=== PATIENT | female | born 1985 | race Caucasian/White ===

== ENCOUNTER 2022-09-07 14:09 | Observation (INO) | payer MEDICAID ==
[2022-09-07 14:45] VITALS: BP 110/57; PULSE 99
[2022-09-07 14:54] LABS: Appearance Cloudy (Clear); Bacteria Moderate /HPF (None Seen); Bilirubin Negative (Negative); Blood Negative (Negative); Epithelial Cells Moderate /HPF (None Seen); Glucose, Urine >=1000 mg/dL (Negative); Hyaline Casts NONE SEEN /LPF (0-2); Ketones 15 (Negative); Leukocyte Esterase Moderate (Negative); Nitrite Negative (Negative); Protein,Urine Dip Trace (Negative); Specific Gravity >=1.030 (1.005-1.030); WBC >100 /HPF (0-5)
[2022-09-07 15:06] LABS: ADD URINE CULTURE? YES (NO)
[2022-09-07 15:08] LABS: Amphetamine,Urine NEGATIVE (NEGATIVE); Barbiturate,Urine NEGATIVE (NEGATIVE); Benzodiazepine,Urine NEGATIVE (NEGATIVE); Cocaine,Urine NEGATIVE (NEGATIVE); Methadone,Urine NEGATIVE (NEGATIVE); Opiate,Urine NEGATIVE (NEGATIVE); PCP,Urine NEGATIVE (NEGATIVE); THC,Urine NEGATIVE (NEGATIVE)
[2022-09-07] MEDS ORDERED: Lactated Ringers 500 ML IV ONE (15:24)
[2022-09-07] MEDS ORDERED: Invanz *** 1 G in Sodium Chloride 100ML MINI-BAG PLUS 100 ML IV SCH (15:30)
[2022-09-07] MEDS ORDERED: Invanz *** 1 G in Sodium Chloride 100ML MINI-BAG PLUS 100 ML IV ONE (15:45)
[2022-09-07 15:49] LABS: Hematocrit 30.7 % (35-47); Hemoglobin 9.9 g/dL (12.0-16.0); Mean Cell Volume 94.8 fL (78-100); Mean Corpuscular Hemoglobin 30.6 pg (26-32); Mean Corpuscular Hgb Concent. 32.2 g/dL (32-36); Mean Platelet Volume 11.5 fL (7.5-11.0); Platelet Count 128 x10^3/uL (150-450); Red Blood Count 3.24 x10^6/uL (4.1-5.4); Red Cell Distribution Width 13.1 % (11.5-14.0)
[2022-09-07 16:23] LABS: ALKALINE PHOSPHATASE 75 U/L (38-126); BLOOD UREA NITROGEN 6 mg/dL (7-17); CHLORIDE 106 mmol/L (98-107); Carbon Dioxide 23 mmol/L (22-30); SGPT/ALT 13 U/L (0-35); SODIUM 137 mmol/L (137-145)
[2022-09-07 16:39] LABS: ALBUMIN 3.1 g/dL (3.5-5.0); ANION GAP 11.6 MEQ/L (5-15); Calcium 7.9 mg/dL (8.4-10.2); EST GLOMERULAR FILTRATION RATE > 60.0 ML/MIN; Glucose 103 mg/dL (74-106); Potassium 3.7 mmol/L (3.5-5.1); SGOT/AST 22 U/L (14-36); Total Protein 5.8 g/dL (6.3-8.2)
[2022-09-07 20:38] LABS: Slide Review YES
== END 2022-09-07 18:05 | disposition home or self-care (01) ==
LOC: OB 14:09
PROVIDERS: ADMIT Obstetrics & Gynecology; ATTEND Obstetrics & Gynecology
DX: Z34.82 Encounter for supervision of other normal pregnancy, second trimester (principal); Z3A.25 25 weeks gestation of pregnancy
CPT/HCPCS: 36415; 80053; 80307; 81001; 85027; 87077; 87086; 87186; G0378; G0379; J1335